=== PATIENT | male | born 1930 | race Caucasian/White ===

== ENCOUNTER 2016-07-17 17:22 | Inpatient (IN) | payer MEDICARE, MEDICAID ==
[2016-07-17 18:06] LABS: AUTOMATED BASOPHIL 0.9 % (0-2); AUTOMATED EOSINOPHIL 6.3 % (0-5); AUTOMATED LYMPH 12.4 % (17-44); AUTOMATED MONOCYTE 8.6 % (3-10); AUTOMATED NEUTROPHIL 71.8 % (45-76); MPV 9.1 fL (7.4-10.4)
[2016-07-17 18:17] LABS: BLOOD UREA NITROGEN 17 MG/DL (9-20); CALCIUM 8.8 MG/DL (8.4-10.2); CALCULATED OSMOLALITY 269 MOs/Kg (270-290); CHLORIDE 101 mEq/L (98-107); GLUCOSE 122 MG/DL (70-99); SODIUM LEVEL 138 mEq/L (137-146)
[2016-07-17 18:23] LABS: PT-INR 1.2
--- NOTE | 2016-07-17 18:24 | DIRPT ---
CLINICAL DATA: Acute onset of cough, shortness of breath and congestion. Initial encounter. EXAM: PORTABLE CHEST 1 VIEW COMPARISON: Chest radiograph performed 03/10/2016 FINDINGS: The lungs are well-aerated. Vascular congestion is noted. Bibasilar airspace opacities may reflect pulmonary edema or multifocal pneumonia. There is no evidence of significant pleural effusion or pneumothorax. The cardiomediastinal silhouette is borderline normal in size. A right-sided chest port is noted ending about the distal SVC. No acute osseous abnormalities are seen. IMPRESSION: Vascular congestion noted. Bibasilar airspace opacities may reflect pulmonary edema or multifocal pneumonia. Electronically Signed By: Oziel Hooker M.D. On: 07/17/2016 18:21
--- NOTE | 2016-07-17 18:44 | EDPRACDOC ---
- General Information Chief Complaint: Dyspnea/Resp distress Stated Complaint: SENT FROM URGENT CARE FOR CHF WORKUP Time Seen by Provider: 07/17/16 17:44 Information Source: Patient Mode Of Arrival: Car Home Medications: Home Medications Pregabalin [Lyrica] 75 mg PO TID 07/24/15 Alprazolam [Xanax] 0.5 mg PO QHS PRN 09/13/15 Aspirin (Enteric Coated) [Halfprin] 81 mg PO .DAILY@1700 09/13/15 Omeprazole [Prilosec] 20 mg PO DAILY 10/22/15 Oxycodone HCl [Roxicodone] 5 mg PO DAILY PRN 10/22/15 Rivastigmine Tartrate [Exelon 13.3 mg Patch] 13.3 mg TOP DAILY 03/11/16 Atorvastatin Calcium [Lipitor] 20 mg PO DAILY #30 tablet 03/15/16 Nitroglycerin Sublingual Tab [NTG (NitroStat Sublingual Tab)] 0.4 mg SL Q5MX3 PRN #30 tablet 03/15/16 Apixaban [Eliquis] 5 mg PO BID 07/17/16 Doxycycline Hyclate 100 mg PO .BID X 10D 07/17/16 Fluticasone Propionate [Flonase] 1 - 2 spray SHREYA DAILY 07/17/16 Furosemide [Lasix] 40 mg PO DAILY 07/17/16 Isosorbide Mononitrate [Isosorbide Mononitrate ER] 30 mg PO BID 07/17/16 Lisinopril [Prinivil] 5 mg PO DAILY 07/17/16 Ranolazine [Ranexa] 1,000 mg PO BID 07/17/16 Allergies/Adverse Reactions: Allergies Allergy/AdvReac Type Severity Reaction Status Date / Time No Known Drug Allergies Allergy Unknown Verified 07/17/16 17:25 - History of Present Illness Onset: FEW DAYS HPI: PT HAS HAD SOB AND COUGH FOR ABOUT 2 DAYS. THE PT SAID THAT HE WENT TO URGENT CARE AND THEY SENT HIM HERE. Shortness of Breath: Moderate Relevant History: Reports: Heart Failure (CHF) Rhinorrhea: Reports: None Ear Symptoms: Reports: None SOB Worsens with: Reports: Exertion SOB Improves with: Reports: Nothing ED Past Medical History - Patient Medical History Neurological History: Reports: Dementia Cardiac History: Reports: Atrial Fibrillation, Hypertension, Congestive Heart Failure, Valvular Heart Disease (AORTIC STENOSIS) Respiratory History: Reports: Pulmonary Embolism GI/ History: Reports: BPH Psychological History: Reports: Anxiety. Denies: Depression, Bipolar Disorder, Substance Use Disorder Systemic History: Reports: Cancer (non hodgkins lymphoma) Surgical History: Reports: Other (Port placement. Prostate surgery for BPH.) Date of Last Chemotherapy Date: 01/2015 - Family Medical History Reports: Cancer (Brother, Father: esophageal cancer; nephew also of cancer. ). Denies: Hypertension, Diabetes, Stroke, Cardiac Disorders, Respiratory Disorders - Social Medical History Smoking Status: Never smoker Social History: Denies: Substance Use Disorder ETOH: None Substance Abuse: None Lives In: Home EDM Review of Systems - Review of Systems ROS Negative Except as Marked: Yes All systems reviewed and were negative except as marked Respiratory: Shortness of Breath Cardiovascular: Chest Pain - Physical Exam Constitutional: Alert (Awake), Distress Oriented to: Time, Person, Place Last recorded Vital Signs: Last Vital Signs Temp 98.6 F 07/17/16 17:25 Pulse 99 07/17/16 17:30 Resp 20 07/17/16 18:01 BP 133/79 07/17/16 17:30 Pulse Ox 96 07/17/16 17:30 Oxygen Pulse Oxygen Saturation 96 O2 Device Room Air Oxygen Flow Rate Fraction of Inspired Oxygen ( FIO2) - HEENT Head: Normal ( normocephalic) Eye Exam: Normal (PERRL, EOMI, Sclera white) Oropharynx: Normal (Pharynx:Moist without exudate,Gums-no swelling) ENT EAC: Normal TMJ: Normal Nose: No Symptoms Reported (septum midline) Neck: Normal (FROM, trachea at midline) - Respiratory/Cardiovascular Respiratory: Rhonchi Cardiovascular: Tachycardia, Irregular - GI Auscultation: Normal (NABS) Palpation: Normal (Soft,No rebound or guarding, non distended) Tenderness: Non tender Estes's Sign: Negative - Musculoskeletal Back: Normal (Non-Tender) Extremities: Normal (Normal tone, Pulses 2+ No cyanosis or edema, FROM) - Integumentary Skin: Normal, Warm, Dry Lymphatics: Normal (no adenopathy) - Neurologic Memory Impaired: Normal Motor Function: Normal (Normal tone, Pulses 2+ No cyanosis or edema, FROM) Cranial Nerve: Normal (CN II-X11 intact sensation, strength 5/5) Cerebellar: Normal Mood Description: Normal Thought: Coherent Perception: Normal ED SOB MDM - Results Result Diagrams: 07/17/16 17:45 07/17/16 17:45 Results: WBC 4.8 xk/uL (3.8-10.8) 07/17/16 17:45 RBC 4.27 xM/uL (4.70-6.10) L 07/17/16 17:45 Hgb 14.0 g/dL (14.0-18.0) 07/17/16 17:45 Hct 40.3 % (42-52) L 07/17/16 17:45 MCV 94 fL (80-94) 07/17/16 17:45 MCH 32.9 pg (27-32) H 07/17/16 17:45 MCHC 34.8 g/dl (33-36) 07/17/16 17:45 RDW 14.4 % (11.5-14.5) 07/17/16 17:45 Plt Count 104 xk/uL (130-400) L 07/17/16 17:45 MPV 9.1 fL (7.4-10.4) 07/17/16 17:45 Neut % (Auto) 71.8 % (45-76) 07/17/16 17:45 Lymph % (Auto) 12.4 % (17-44) L 07/17/16 17:45 [place] % (Auto) 8.6 % (3-10) 07/17/16 17:45 Eos % (Auto) 6.3 % (0-5) H 07/17/16 17:45 Baso % (Auto) 0.9 % (0-2) 07/17/16 17:45 Absolute Neuts (auto) 3.41 xk/uL (1.7-8.2) 07/17/16 17:45 Absolute Lymphs (auto) 0.58 xk/uL (0.65-4.75) L 07/17/16 17:45 PT 12.3 SEC (9.2-11.2) H 07/17/16 17:45 INR 1.2 07/17/16 17:45 APTT 32.0 SEC (22-35) 07/17/16 17:45 Sodium 138 mEq/L (137-146) 07/17/16 17:45 Potassium 3.6 mEq/L (3.5-5.1) 07/17/16 17:45 Chloride 101 mEq/L (98-107) 07/17/16 17:45 Carbon Dioxide 24 mMOL/L (22-33) 07/17/16 17:45 Anion Gap 17 mEq/L (8-16) H 07/17/16 17:45 BUN 17 MG/DL (9-20) 07/17/16 17:45 Creatinine 0.80 MG/DL (0.66-1.25) 07/17/16 17:45 Estimated GFR (MDRD) > 60 mL/min (>=60) 07/17/16 17:45 Glucose 122 MG/DL (70-99) H 07/17/16 17:45 Calculated Osmolality 269 MOs/Kg (270-290) L 07/17/16 17:45 Calcium 8.8 MG/DL (8.4-10.2) 07/17/16 17:45 Corrected Calcium 9.0 MG/DL (8.4-10.2) 07/17/16 17:45 Total Bilirubin 1.2 MG/DL (0.2-1.3) 07/17/16 17:45 AST 31 IU/L (17-59) 07/17/16 17:45 ALT 22 IU/L (21-72) 07/17/16 17:45 Alkaline Phosphatase 93 IU/L (50-160) 07/17/16 17:45 Troponin I 0.02 ng/mL (<.04) 07/17/16 17:45 Mdz-K-Jxvffsmipfa Pept 4130 pg/mL (0-1800) H 07/17/16 17:45 Total Protein 7.0 G/DL (6.3-8.2) 07/17/16 17:45 Albumin 3.8 G/DL (3.5-5.0) 07/17/16 17:45 Lab Results 07/17/16 07/17/16 07/17/16 17:45 17:45 17:45 WBC 4.8 RBC 4.27 L Hgb 14.0 Hct 40.3 L MCV 94 MCH 32.9 H MCHC 34.8 RDW 14.4 Plt Count 104 L MPV 9.1 Neut % (Auto) 71.8 Lymph % (Auto) 12.4 L [place] % (Auto) 8.6 Eos % (Auto) 6.3 H Baso % (Auto) 0.9 Absolute Neuts (auto) 3.41 Absolute Lymphs (auto) 0.58 L PT 12.3 H INR 1.2 APTT 32.0 Sodium 138 Potassium 3.6 Chloride 101 Carbon Dioxide 24 Anion Gap 17 H BUN 17 Creatinine 0.80 Estimated GFR (MDRD) > 60 Glucose 122 H Calculated Osmolality 269 L Calcium 8.8 Corrected Calcium 9.0 Total Bilirubin 1.2 AST 31 ALT 22 Alkaline Phosphatase 93 Troponin I 0.02 Oub-Y-Lwndoayqnds Pept 4130 H Total Protein 7.0 Albumin 3.8 - EKG EKG #1 EKG Time: 17:29 -: Yes EKG interpreted by me Rate: bpm: 98 [place]: Normal Rhythm: Afib Block: None Hypertrophy: None ST: Normal Comparison: 03/10/16 - Diagnostic Imaging Chest Image interpreted by: Radiologist Diagnostic Imaging Comments: Vascular congestion noted. Bibasilar airspace opacities may reflect pulmonary edema or multifocal pneumonia. - Departure Yes I personally saw and evaluated the patient. Disposition: Admit IP To This Hospital Condition: Fair Final Diagnosis: Acute exacerbation of CHF (congestive heart failure), Chest pain, Atrial fibrillation Instructions: *Heart Failure (Activity, Diet, Worsening Symptoms, Weight Monitoring)(ED), Chest Pain (ED), Chest Wall Pain, Atrial Fibrillation (ED) Education/Counseling Given To: Patient Education/Counseling Given Regarding: Diagnosis, Treatment Decision to Admit Time: 18:46 Decision to admit date: 07/17/16 Decision to admit: from ED - Physician Consulted Hospitalist Provider Called: Attila Larson
[2016-07-17] MEDS ORDERED: FUROSEMIDE 40 MG/4 ML VIAL IV ONE (18:58)
[2016-07-17] MEDS ORDERED: NITROGLYCERINE 2 % OINTMENT PACK TOP ONE (18:58)
--- NOTE | 2016-07-17 19:25 | HISTPHYS ---
- Chief Complaint chest pain and shortness of breath - History of Present Illness PRIMARY CARE PROVIDER: Dr. Sofia HPI: The patient is an 86 yo man who went to the urgent care 2 days ago, then again today and was told he should come in to the emergency department due to fluid on his lungs. He was coughing often and was short of breath. He had some mild chest pain on the left. Onset: 2 or more days. Duration: intermittent. Location: left chest. Radiation: none. Character: 2/10. Dull ache. No heaviness. Alleviated by: Nothing. Exacerbated by: exertion. Associated Symptoms: Coughing up green sputum. No wheezing now but had been before. Shortness of breath. Mild chest pain and had sense of irregular heartbeat/palpitations. No fever or chills. No diaphoresis. Treatments: none at home except usual medications. - Medical History Cardiac History: Reports: Atrial Fibrillation, Hypertension, Congestive Heart Failure (SYSTOLIC. ECHO 03/2016: EF30-35%. 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 Denies: Depression, Bipolar Disorder, Substance Use Disorder ECHOCARDIOGRAM 03/11/2016: EF 30-35% FINDINGS ------- Procedure:2D images, m-mode, color and spectral Doppler were obtained and reviewed. ECG rhythm:Atrial fibrillation. Study quality:This was a technically adequate study. Previous study 07/2015. Left Ventricle:The left ventricle is moderately dilated. Left ventricular wall thickness is normal. There is severe global hypokinesis of LV . Overall left ventricular systolic function is moderate-severely impaired with, an EF between 30 - 35 %. Right Ventricle:The right ventricle is normal in size and function. Left Atrium:Left atrium is severely dilated by volume. Right Atrium:The right atrium is mildly enlarged. Aortic Valve:Aortic valve is trileaflet and is severely thickened. There is no evidence of aortic regurgitation. Moderate to severe aortic stenosis with peak/mean pressure gradient of AV 45 maxPG / AV 31 meanPG , the aortic valve area byplanimetry 1.1 cm 2. The aortic valve area by continuity equation is 1.0 cm2 Mitral Valve:Normal appearing mitral valve. There is trace to mild mitral regurgitation. Tricuspid Valve:The tricuspid valve appears structurally normal. Mild tricuspid regurgitation present. The right ventricular systolic pressure, as measured by Doppler, is 59 mmHg. Pulmonic Valve:The pulmonic valve is normal. Trace/mild (physiologic) pulmonic regurgitation. Aorta:The aortic root, ascending aorta and aortic arch not well visualized. IVC:The inferior vena cava is dilated with no significant inspiratory collapse which is consistent estimated right atrial pressure of >20 mmHg. Pericardium:The pericardium is normal. There is a trivial pericardial effusion present. CONCLUSIONS 1. Atrial fibrillation. 2. The left ventricle is moderately dilated. 3. There is severe global hypokinesis of LV. 4. Overall left ventricular systolic function is moderate-severely impaired with , an EF between 30 - 35 %. 5. Left atrium is severely dilated by volume. 6. The right atrium is mildly enlarged. 7. Moderate to severe aortic stenosis with peak/mean pressure gradient of AV 45 maxPG / AV 31 meanPG , the aortic valve area byplanimetry 1.1 cm 2. - Surgical History Reports: Other (Port placement. Prostate surgery for BPH.) - Medictions/Allergies Allergies No Known Drug Allergies Allergy (Verified 07/17/16 17:25) Unknown Current Medication List: Reviewed Home Medications Pregabalin [Lyrica] 75 mg PO TID 07/24/15 Alprazolam [Xanax] 0.5 mg PO QHS PRN 09/13/15 Aspirin (Enteric Coated) [Halfprin] 81 mg PO .DAILY@1700 09/13/15 Omeprazole [Prilosec] 20 mg PO DAILY 10/22/15 Oxycodone HCl [Roxicodone] 5 mg PO DAILY PRN 10/22/15 Rivastigmine Tartrate [Exelon 13.3 mg Patch] 13.3 mg TOP DAILY 03/11/16 Atorvastatin Calcium [Lipitor] 20 mg PO DAILY #30 tablet 03/15/16 Nitroglycerin Sublingual Tab [NTG (NitroStat Sublingual Tab)] 0.4 mg SL Q5MX3 PRN #30 tablet 03/15/16 Apixaban [Eliquis] 5 mg PO BID 07/17/16 Doxycycline Hyclate 100 mg PO .BID X 10D 07/17/16 Fluticasone Propionate [Flonase] 1 - 2 spray SHREYA DAILY 07/17/16 Furosemide [Lasix] 40 mg PO DAILY 07/17/16 Isosorbide Mononitrate [Isosorbide Mononitrate ER] 30 mg PO BID 07/17/16 Lisinopril [Prinivil] 5 mg PO DAILY 07/17/16 Ranolazine [Ranexa] 1,000 mg PO BID 07/17/16 - Family History Reports: Cancer (Brother, Father: esophageal cancer; nephew also of cancer. ), Cardiac Disorders (Mother), Other. Denies: Hypertension, Diabetes, Stroke, Respiratory Disorders - Social History Smoking Status: Never smoker Social History: Denies: Alcohol Use, Substance Use Disorder - Review of Systems GENERAL: No Fever, chills, or diaphoresis. Positive for fatigue/malaise. HEENT: No ear pain or discharge. No nasal discharge or bleeding. No throat pain or swelling. No eye pain or eye redness. RESPIRATORY: Coughing up green sputum. No wheezing now but had been before. Shortness of breath. CARDIOVASCULAR: Mild chest pain and had sense of irregular heartbeat/ palpitations. GI: No abdominal pain, nausea, vomiting, diarrhea, constipation, or bloody stool. NEUROLOGICAL: No headache or focal weakness. INTEGUMENT: no rashes, itching, or lesions. LYMPHATIC SYSTEM: no lymph node swelling or pain. MUSCULOSKELETAL: no pain or joint swelling. GENITOURINARY: No dysuria or hematuria. ENDOCRINE: No polyuria or polydipsia. HEME: No chronic anemia, bleeding, or easy bruising. - Physical Exam Vital Signs: Initial Vitals Temperature 98.6 F 07/17/16 17:25 Pulse Rate 115 07/17/16 17:25 Respiratory Rate 22 07/17/16 17:25 Blood Pressure 138/92 07/17/16 17:25 Pulse Oxygen Saturation 95 07/17/16 17:25 Vital Signs - 24 hr 07/17/16 07/17/16 07/17/16 17:25 17:30 18:01 Temperature 98.6 F Pulse Rate 115 99 Respiratory 22 20 20 Rate Blood Pressure 138/92 133/79 Pulse Oxygen 95 96 Saturation 07/17/16 19:17 Temperature Pulse Rate 73 Respiratory 18 Rate Blood Pressure 107/57 L Pulse Oxygen 92 Saturation Weight: 92.5 kg Height: 5 feet 9 inches BMI: 30.1 - Other Exam Other Exam Findings: GENERAL: Ill-appearing, well nourished, in acute distress. HEENT: Normocephalic, atraumatic; pupils equal and round. Nares patent, without discharge or bleeding. No oropharyngeal lesions or erythema. Mucous membranes are dry. NECK: is supple, no masses, trachea midline. RESPIRATORY: Clear to auscultation bilaterally. Chest wall movements are symmetric. No use of accessory muscles to breathe. Decreased breath sounds in bases bilaterally. Bilateral rales. Rhonchi on left. CARDIOVASCULAR: Normal S1, S2. Murmur 3/6 systolic. No rubs, or gallops. PMI non -displaced. Carotids: no carotid bruits. No bradycardia or tachycardia. DP pulses 2+ bilaterally. GI: soft, nontender, non-distended, normal active bowel sounds. No hepatosplenomegaly. INTEGUMENT: Clean, dry, and intact. No rashes. MUSCULOSKELETAL: Moving all extremities. No cyanosis. No clubbing. Edema: trace lower extremity edema bilaterally. NEUROLOGICAL: Cranial nerves 2-12 grossly intact. Motor 4-/5 throughout. Reflexes: 2+ bilaterally. Babinski: toes downgoing bilaterally. Intact Finger to nose. Sensory grossly intact to light touch. Intact rapid alternating movements bilaterally. No pronator drift. PSYCHIATRIC: Oriented to person and place. Normal and appropriate affect. LYMPHATIC: No cervical lymphadenopathy. No supraclavicular lymphadenopathy. - Lab Results Laboratory Results - last 24 hr 07/17/16 07/17/16 07/17/16 17:45 17:45 17:45 WBC 4.8 RBC 4.27 L Hgb 14.0 Hct 40.3 L MCV 94 MCH 32.9 H MCHC 34.8 RDW 14.4 Plt Count 104 L MPV 9.1 Neut % (Auto) 71.8 Lymph % (Auto) 12.[address] [place] % (Auto) 8.6 Eos % (Auto) 6.3 H Baso % (Auto) 0.9 Absolute Neuts (auto) 3.41 Absolute Lymphs (auto) 0.58 L PT 12.3 H INR 1.2 APTT 32.0 Sodium 138 Potassium 3.6 Chloride 101 Carbon Dioxide 24 Anion Gap 17 H BUN 17 Creatinine 0.80 Estimated GFR (MDRD) > 60 Glucose 122 H Calculated Osmolality 269 L Calcium 8.8 Corrected Calcium 9.0 Total Bilirubin 1.2 AST 31 ALT 22 Alkaline Phosphatase 93 Troponin I 0.02 Jbm-U-Dzuvlygyqbo Pept 4130 H Total Protein 7.0 Albumin 3.8 - Diagnostic Findings EK bpm. Atrial fibrillation. QTc 518. Reviewed EKG personally. Chest x-ray, viewed personally: CLINICAL DATA: Acute onset of cough, shortness of breath and congestion. Initial encounter. EXAM: PORTABLE CHEST 1 VIEW COMPARISON: Chest radiograph performed 03/10/2016 FINDINGS: The lungs are well-aerated. Vascular congestion is noted. Bibasilar airspace opacities may reflect pulmonary edema or multifocal pneumonia. There is no evidence of significant pleural effusion or pneumothorax. The cardiomediastinal silhouette is borderline normal in size. A right-sided chest port is noted ending about the distal SVC. No acute osseous abnormalities are seen. IMPRESSION: Vascular congestion noted. Bibasilar airspace opacities may reflect pulmonary edema or multifocal pneumonia. - Assessment (1) Acute on chronic systolic congestive heart failure I50.23 - ACUTE ON CHRONIC SYSTOLIC (CONGESTIVE) HEART FAILURE Acute Present on Admission: Yes The patient has both acute and chronic heart failure. Heart failure type: systolic Echocardiogram 03/2016 shows EF 30-35% and moderate to severe . Plan: Diet of 2 g Na. Daily weights with strict I/O's. Beta blockers held due to bradycardia. Provide support with oxygen by nasal cannula as needed. Provide teaching regarding heart failure, 2g Na diet, daily weights, signs of acute heart failure. (2) Bacterial pneumonia J15.9 - UNSPECIFIED BACTERIAL PNEUMONIA Acute Present on Admission: Yes Pneumonia. Severe. Requiring continuous oxygen support. Failed outpatient management with PO doxycycline. Type: Community acquired pneumonia. Criteria for diagnosis: Chest x-ray suggestive of pneumonia, rhonchi on physical exam. Likely bacterial. Plan: Sputum culture has been ordered. Treat with IV ceftriaxone and IV azithromycin. Monitor oxygen saturation levels. (3) Atrial fibrillation I48.91 - UNSPECIFIED ATRIAL FIBRILLATION Acute Present on Admission: Yes Plan: Continue anticoagulation with Eliquis. Telemetry. (4) Dyspnea R06.00 - DYSPNEA, UNSPECIFIED Acute Present on Admission: Yes PRN O2 by [place] Case Care Discussed with: Patient, Nursing Staff Total Time: 60 min
[2016-07-17] MEDS ORDERED: FUROSEMIDE 20 MG/2 ML VIAL ONE (19:29)
[2016-07-17] MEDS ORDERED: CEFTRIAXONE 1 GM in D5W 100 ML IV ONE (19:31)
[2016-07-17] MEDS ORDERED: ALPRAZOLAM 0.5 MG TAB PO PRN (22:34)
[2016-07-17] MEDS ORDERED: NITROGLYCERINE 0.4 MG TAB SL PRN (22:34)
[2016-07-17] MEDS ORDERED: OXYCODONE HCL 5 MG TABLET PO PRN (22:34)
[2016-07-17] MEDS ORDERED: MORPHINE 2 MG/ML INJECTION IV PRN (22:36)
[2016-07-17] MEDS ORDERED: Non-Formulary Medication ITEM (Pregabalin [Lyrica] 75 MG) PO SCH (22:45)
[2016-07-17] MEDS ORDERED: PREGABALIN 25 MG CAP PO ONE (23:00)
[2016-07-17] MEDS ORDERED: Vaccine Screening Complete SCH (23:00)
[2016-07-17] MEDS ORDERED: FLUTICASONE PROPIONATE 16 GM BOT NAS SCH (23:00)
[2016-07-17] MEDS ORDERED: Pharmacy Order Set Alert SCH (23:00)
[2016-07-17] MEDS: AZITHROMYCIN 500 MG in D5W 250 ML IV SCH (23:18)
[2016-07-17 23:34] LABS: LEUKOCYTES/URINE NEG (NEGATIVE); NITRITE/URINE NEG (NEGATIVE); RBC/URINE 0-2 (0-2); URINE OCCULT BLOOD NEG (NEG/TRACE); WBC/URINE 0-2 (0-2)
[2016-07-18] MEDS ORDERED: PROMETHAZINE 25 MG/ML VIAL IV PRN (00:24)
[2016-07-18] MEDS ORDERED: SENNA CONCENTRATE TAB PO PRN (00:24)
[2016-07-18] MEDS ORDERED: BENZONATATE 100 MG PERLES PO PRN (00:24)
[2016-07-18] MEDS ORDERED: ACETAMINOPHEN 325 MG/TAB TABLET PO PRN (00:24)
[2016-07-18] MEDS ORDERED: GUAIFEN 100 MG-DEXTROMETH 10 MG PER 5 ML PO PRN (00:24)
[2016-07-18] MEDS ORDERED: Aluminum;Magnesium;Simethicone 30 ML UDC PO PRN (00:24)
[2016-07-18] MEDS ORDERED: TEMAZEPAM 15 MG CAP PO PRN (00:24)
[2016-07-18] MEDS ORDERED: ACETAMINOPHEN 325 MG SUPP PR PRN (00:24)
[2016-07-18] MEDS ORDERED: ONDANSETRON HCL 4 MG/2 ML VIAL IV PRN (00:24)
[2016-07-18] MEDS ORDERED: BISACODYL 5 MG TAB PO PRN (00:24)
[2016-07-18] MEDS: CARVEDILOL 3.125 MG TAB PO SCH ×3 (00:37→21:27)
[2016-07-18] MEDS: APIXABAN 5 MG TABLET PO SCH ×3 (00:37→21:30)
[2016-07-18] MEDS: RANOLAZINE 500 MG EXT RELEASE TAB PO SCH ×3 (00:38→21:30)
[2016-07-18 04:41] LABS: MPV 9.7 fL (7.4-10.4)
[2016-07-18] MEDS: FUROSEMIDE 40 MG/4 ML VIAL IV SCH ×3 (04:45→19:55)
[2016-07-18 04:55] LABS: BLOOD UREA NITROGEN 17 MG/DL (9-20); CALCIUM 8.7 MG/DL (8.4-10.2); CALCULATED OSMOLALITY 270 MOs/Kg (270-290); CHLORIDE 98 mEq/L (98-107); GLUCOSE 91 MG/DL (70-99); SODIUM LEVEL 139 mEq/L (137-146)
[2016-07-18] MEDS: PREGABALIN 25 MG CAP PO SCH ×3 (05:40→21:29)
[2016-07-18] MEDS: PANTOPRAZOLE 40 MG TAB PO SCH (05:41)
[2016-07-18] MEDS: LISINOPRIL 5 MG TAB PO SCH (07:59)
[2016-07-18] MEDS: ISOSORBIDE MONONITRATE 30 MG TAB PO SCH ×2 (07:59→21:27)
[2016-07-18] MEDS: ATORVASTATIN 20 MG TAB PO SCH (08:00)
[2016-07-18] MEDS: RIVASTIGMINE 13.3 MG PATCH TOP SCH (08:00)
[2016-07-18] MEDS: FLUTICASONE PROPIONATE 16 GM BOT NAS SCH (08:00)
[2016-07-18] MEDS ORDERED: OMEPRAZOLE 20 MG PO SCH (09:00)
[2016-07-18] MEDS ORDERED: ALBUTEROL 0.083% 3 ML NEB NEB PRN (10:49)
--- NOTE | 2016-07-18 17:15 | GENMEDPROG ---
Subjective Note: Doing very well standing up working with physical therapy. He has been weaned to room air Notes Reviewed: Yes Events from last night noted and discussed with Clinical Staff Current Medication List: Reviewed Currently: Denies: MOUSTAPHA MON DVT Prophylaxis: Yes - Physical Examination Vital Signs and I&O: Last Vital Signs Temp 97.8 F 07/18/16 16:15 Pulse 71 07/18/16 17:07 Resp 20 07/18/16 16:15 BP 115/76 07/18/16 16:15 Pulse Ox 95 07/18/16 16:15 Oxygen Pulse Oxygen Saturation 95 O2 Device Room Air Oxygen Flow Rate 2 Fraction of Inspired Oxygen ( FIO2) Intake & Output 07/15/16 07/16/16 07/17/16 07/18/16 23:59 23:59 23:59 23:59 Intake Total 1 1092 Output Total 1600 2400 Balance -1599 -1305 Patient's weight 86.545 kg 86.183 kg Neck: Supple. negative: JVD Lymphatics: Normal (no adenopathy) Respiratory: Normal - CTA (Clear to auscultation bilaterally. No wheezing, rales , rhonchi. Chest wall movements are symmetric. No use of accessory muscles to breathe.) Cardiovascular: Regular rate and rhythm (No bradycardia or tachycardia), Normal S1, No Gallops,Rubs/Murmurs, Normal S2, Good Pedal Pulses (DP pulses 2+ bilaterally) GI: Normal bowel sounds (normal active sounds), Soft (non-distended), Non tender , No hepatospenomegaly, No masses Extremities/Musculoskeletal: Normal pulses (DP pulses 2+ bilaterally). negative : Edema Skin: Warm,Dry and Intact, No rashes, No significant lesion Lab/DI/Studies Reviewed: Abnormal Lab Results 07/17/16 07/17/16 07/17/16 17:45 17:45 17:45 RBC 4.27 L Hgb Hct 40.3 L MCV MCH 32.9 H Plt Count 104 L Lymph % (Auto) 12.4 L Eos % (Auto) 6.3 H Absolute Lymphs (auto) 0.58 L PT 12.3 H Potassium Anion Gap 17 H Glucose 122 H Calculated Osmolality 269 L Ocw-U-Lvtqnzejvww Pept 4130 H 07/18/16 07/18/16 02:55 02:55 RBC 4.15 L Hgb 13.6 L Hct 39.4 L MCV 95 H MCH 32.8 H Plt Count 97 L Lymph % (Auto) Eos % (Auto) Absolute Lymphs (auto) PT Potassium 3.3 L Anion Gap Glucose Calculated Osmolality Mfe-B-Ulpdmfzsjlg Pept - Assessment (1) Acute on chronic systolic congestive heart failure Acute I50.23 - ACUTE ON CHRONIC SYSTOLIC (CONGESTIVE) HEART FAILURE Comment/ Plan: The patient has both acute and chronic heart failure. Heart failure type: systolic Echocardiogram 03/2016 shows EF 30-35% and moderate to severe . Plan: Diet of 2 g Na. Daily weights with strict I/O's. Beta blockers held due to bradycardia. Provide support with oxygen by nasal cannula as needed. Provide teaching regarding heart failure, 2g Na diet, daily weights, signs of acute heart failure. Continue present plan check ambulating O2 room air sats in a.m.. (2) Bacterial pneumonia Acute J15.9 - UNSPECIFIED BACTERIAL PNEUMONIA Comment/Plan: Continue IV antibiotics. Patient has weaned to room air. Check a.m. ambulating O2 sats. (3) Atrial fibrillation Acute I48.91 - UNSPECIFIED ATRIAL FIBRILLATION Qualifiers: Atrial fibrillation type: chronic Qualified Code(s): I48.2 - Chronic atrial fibrillation Comment/Plan: Plan: Continue anticoagulation with Eliquis. Telemetry. (4) Dyspnea Acute R06.00 - DYSPNEA, UNSPECIFIED Comment/Plan: PRN O2 by [place] - Plan Continue present plan diurese as above. Total Time: 45 min Critical Care: No Couseling Time (>50% in counseling/coordination): No
[2016-07-18] MEDS ORDERED: CEFTRIAXONE 1 GM in D5W 100 ML IV SCH (20:00)
[2016-07-18] MEDS: GUAIFENESIN-DEXTROMETHORPHAN LA TAB PO SCH (21:30)
[2016-07-18] MEDS: AZITHROMYCIN 500 MG in D5W 250 ML IV SCH (23:05)
[2016-07-19 03:15] VITALS: BMI 27.9
[2016-07-19 04:48] LABS: AUTOMATED EOSINOPHIL 5.1 % (0-5)
[2016-07-19 04:50] LABS: AUTOMATED BASOPHIL 0.5 % (0-2); AUTOMATED LYMPH 16.1 % (17-44); AUTOMATED MONOCYTE 11.8 % (3-10); AUTOMATED NEUTROPHIL 66.5 % (45-76); MPV 9.5 fL (7.4-10.4)
[2016-07-19] MEDS: FUROSEMIDE 40 MG/4 ML VIAL IV SCH ×2 (04:55→13:11)
[2016-07-19 04:58] LABS: BLOOD UREA NITROGEN 16 MG/DL (9-20); CALCULATED OSMOLALITY 266 MOs/Kg (270-290); CHLORIDE 96 mEq/L (98-107); GLUCOSE 109 MG/DL (70-99); SODIUM LEVEL 137 mEq/L (137-146)
[2016-07-19] MEDS: PREGABALIN 25 MG CAP PO SCH (05:11)
[2016-07-19] MEDS: PANTOPRAZOLE 40 MG TAB PO SCH (05:11)
[2016-07-19] MEDS ORDERED: POTASSIUM CHLORIDE 20 MEQ TAB PO SCH (08:00)
[2016-07-19] MEDS ORDERED: FUROSEMIDE 40 MG TAB PO SCH (09:00)
[2016-07-19] MEDS: ISOSORBIDE MONONITRATE 30 MG TAB PO SCH (10:10)
[2016-07-19] MEDS: CARVEDILOL 3.125 MG TAB PO SCH (10:10)
[2016-07-19] MEDS: LISINOPRIL 5 MG TAB PO SCH (10:10)
[2016-07-19] MEDS: MAGNESIUM OXIDE 400 MG TAB PO SCH ×2 (10:11→13:11)
[2016-07-19] MEDS: RIVASTIGMINE 13.3 MG PATCH TOP SCH (10:12)
[2016-07-19] MEDS: APIXABAN 5 MG TABLET PO SCH (10:12)
[2016-07-19] MEDS: FLUTICASONE PROPIONATE 16 GM BOT NAS SCH (10:13)
[2016-07-19] MEDS: ATORVASTATIN 20 MG TAB PO SCH (10:13)
[2016-07-19] MEDS: GUAIFENESIN-DEXTROMETHORPHAN LA TAB PO SCH (10:14)
[2016-07-19] MEDS: RANOLAZINE 500 MG EXT RELEASE TAB PO SCH (10:14)
[2016-07-19 11:39] VITALS: TEMP 97.5
[2016-07-19 11:41] VITALS: BP 119/62
--- NOTE | 2016-07-19 13:33 | PCM.DCS92 ---
- Final/Secondary Discharge Diagnosis (1) Acute on chronic systolic congestive heart failure Acute I50.23 - ACUTE ON CHRONIC SYSTOLIC (CONGESTIVE) HEART FAILURE Present on Admission: Yes Comment: The patient has both acute and chronic heart failure. Heart failure type: systolic Echocardiogram 03/2016 shows EF 30-35% and moderate to severe . Plan: Diet of 2 g Na. Daily weights with strict I/O's. Beta blockers held due to bradycardia. Provide support with oxygen by nasal cannula as needed. Provide teaching regarding heart failure, 2g Na diet, daily weights, signs of acute heart failure. Continue present plan check ambulating O2 room air sats in a.m.. (2) Bacterial pneumonia Acute J15.9 - UNSPECIFIED BACTERIAL PNEUMONIA Present on Admission: Yes Comment: Continue IV antibiotics. Patient has weaned to room air. Check a.m. ambulating O2 sats. (3) Atrial fibrillation Acute I48.91 - UNSPECIFIED ATRIAL FIBRILLATION Present on Admission: Yes chronic I48.2 - Chronic atrial fibrillation Comment: Plan: Continue anticoagulation with Eliquis. Telemetry. (4) Dyspnea Acute R06.00 - DYSPNEA, UNSPECIFIED Present on Admission: Yes Comment: PRN O2 by NC Discharge Disposition: Home Discharge Condition: Fair Cognitive Discharge Status: Unimpaired Fuctional Discharge Status: Independent Physician Follow up/Referrals: Jose Sofia MD [Primary Care Provider] - One Week New Prescriptions: Carvedilol [Coreg] 3.125 mg PO BID #60 tablet Fluticasone Propionate [Flonase] 1 sprays SHREYA DAILY #1 bottle POTASSIUM CHLORIDE Tablet [K-DUR 20 mEq Tablet*] 20 meq PO BIDWM #30 tab.er.prt Pregabalin [Lyrica] 75 mg PO TID #90 capsule Magnesium Oxide [Mag-Ox] 400 mg PO TIDWM #90 tablet Guaifenesin-Dextromethorphan [Mucinex Dm] 2 tab PO BID #20 tablet.er Oxycodone HCl [Roxicodone] 5 mg PO DAILY PRN #10 tablet PRN Reason: Pain Benzonatate [Tessalon] 100 mg PO TID PRN #30 capsule PRN Reason: Cough - First Option Alprazolam [Xanax] 0.5 mg PO QHS PRN #10 tablet PRN Reason: Sleep Or Insomnia Discharge Home Medication List Aspirin (Enteric Coated) [Halfprin] 81 mg PO .DAILY@1400 09/13/15 [History Confirmed 07/18/16] Omeprazole [Prilosec] 20 mg PO DAILY 10/22/15 [History Confirmed 07/17/16] Rivastigmine Tartrate [Exelon 13.3 mg Patch] 13.3 mg TOP DAILY 03/11/16 [ History Confirmed 07/17/16] Atorvastatin Calcium [Lipitor] 20 mg PO DAILY #30 tablet 03/15/16 [Rx Confirmed 07/17/16] Nitroglycerin Sublingual Tab [NTG (NitroStat Sublingual Tab)] 0.4 mg SL [id number] PRN #30 tablet 03/15/16 [Rx Confirmed 07/17/16] Apixaban [Eliquis] 5 mg PO BID 07/17/16 [History Confirmed 07/17/16] Furosemide [Lasix] 40 mg PO DAILY 07/17/16 [History Confirmed 07/17/16] Isosorbide Mononitrate [Isosorbide Mononitrate ER] 30 mg PO BID 07/17/16 [ History Confirmed 07/17/16] Lisinopril [Prinivil] 5 mg PO DAILY 07/17/16 [History Confirmed 07/17/16] Ranolazine [Ranexa] 1,000 mg PO BID 07/17/16 [History Confirmed 07/17/16] Alprazolam [Xanax] 0.5 mg PO QHS PRN #10 tablet 07/19/16 [Rx] Benzonatate [Tessalon] 100 mg PO TID PRN #30 capsule 07/19/16 [Rx] Carvedilol [Coreg] 3.125 mg PO BID #60 tablet 07/19/16 [Rx] Fluticasone Propionate [Flonase] 1 sprays SHREYA DAILY #1 bottle 07/19/16 [Rx] Guaifenesin-Dextromethorphan [Mucinex Dm] 2 tab PO BID #20 tablet.er 07/19/16 [ Rx] Magnesium Oxide [Mag-Ox] 400 mg PO TIDWM #90 tablet 07/19/16 [Rx] Oxycodone HCl [Roxicodone] 5 mg PO DAILY PRN #10 tablet 07/19/16 [Rx] POTASSIUM CHLORIDE Tablet [K-DUR 20 mEq Tablet*] 20 meq PO BIDWM #30 tab.er.prt 07/19/16 [Rx] Pregabalin [Lyrica] 75 mg PO TID #90 capsule 07/19/16 [Rx] New Discharge Medications (Rx) Alprazolam [Xanax] 0.5 mg PO QHS PRN #10 tablet 07/19/16 [Rx] Benzonatate [Tessalon] 100 mg PO TID PRN #30 capsule 07/19/16 [Rx] Carvedilol [Coreg] 3.125 mg PO BID #60 tablet 07/19/16 [Rx] Fluticasone Propionate [Flonase] 1 sprays SHREYA DAILY #1 bottle 07/19/16 [Rx] Guaifenesin-Dextromethorphan [Mucinex Dm] 2 tab PO BID #20 tablet.er 07/19/16 [ Rx] Magnesium Oxide [Mag-Ox] 400 mg PO TIDWM #90 tablet 07/19/16 [Rx] Oxycodone HCl [Roxicodone] 5 mg PO DAILY PRN #10 tablet 07/19/16 [Rx] POTASSIUM CHLORIDE Tablet [K-DUR 20 mEq Tablet*] 20 meq PO BIDWM #30 tab.er.prt 07/19/16 [Rx] Pregabalin [Lyrica] 75 mg PO TID #90 capsule 07/19/16 [Rx] O2 Device: Room Air Diet at Discharge: As Tolerated, Cardiac, Heart Healthy, Low Salt Activity: No Restrictions, No Heavy Lifting Call Office For: Worsening Symptoms, Fever over 100.5, Pain Uncontrolled By Meds - DC Summary Notes Hospital Course Note:: Discharge summary on patient named JOSE RAUL DAHL admitted to [facility] on 07/17/16 by Attila Larson MD. Date of discharge is []. 86-year-old gentleman admitted to our facility with acute on chronic systolic congestive heart failure decompensated, bacterial pneumonia, atrial fibrillation and dyspnea. He was treated for the above conditions and did quite well. Today he has reached maximum benefit of hospitalization. He is stable for discharge home on oral Lasix oral antibiotics and oral rate control medicines. He is on appropriate 5 drug therapy for congestive heart failure. Total Time: 55 min - Physical Exam Vital Signs: Last Vital Signs Temp 97.5 F 07/19/16 11:39 Pulse 67 01/17/17 12:00 Resp 20 07/19/16 11:39 BP 119/62 07/19/16 11:39 Pulse Ox 93 07/19/16 11:39 Oxygen Pulse Oxygen Saturation 93 O2 Device Room Air Oxygen Flow Rate 2 Fraction of Inspired Oxygen ( FIO2) Constitutional: Alert (Awake), Distress Oriented to: Time, Person, Place - HEENT Head: Normal ( normocephalic) Eye: Normal (PERRL, EOMI, Sclera white) Oropharynx: Normal (Pharynx:Moist without exudate,Gums-no swelling) ENT EAC: Normal TMJ: Normal Nose: No Symptoms Reported (septum midline) - Respiratory/Cardiovascular Respiratory: Normal - CTA (Clear to auscultation bilaterally. No wheezing, rales , rhonchi. Chest wall movements are symmetric. No use of accessory muscles to breathe.) - GI Auscultation: Normal (NABS) Palpation: Normal (Soft,No rebound or guarding, non distended) Tenderness: Non tender Estes's Sign: Negative - Musculoskeletal Back: Normal (Non-Tender) Extremities: Normal (Normal tone, Pulses 2+ No cyanosis or edema, FROM) - Integumentary Lymphatics: Normal (no adenopathy) - Neurologic Memory Impaired: Normal Cerebellar: Normal Mood Description: Normal Thought: Coherent Perception: Normal - Other Exam Other Exam Findings: Laboratory Results - last 24 hr 07/19/16 07/19/16 04:10 04:10 WBC 5.3 RBC 4.47 L Hgb 14.5 Hct 42.0 MCV 94 MCH 32.5 H MCHC 34.6 RDW 14.4 Plt Count 100 L MPV 9.5 Neut % (Auto) 66.5 Lymph % (Auto) 16.1 L Tyler % (Auto) 11.8 H Eos % (Auto) 5.1 H Baso % (Auto) 0.5 Absolute Neuts (auto) 3.50 Absolute Lymphs (auto) 0.85 Sodium 137 Potassium 3.4 L Chloride 96 L Carbon Dioxide 31 Anion Gap 13 BUN 16 Creatinine 0.70 Estimated GFR (MDRD) > 60 Glucose 109 H Calculated Osmolality 266 L Calcium 9.0 Magnesium 1.90
[2016-07-19 14:40] VITALS: PULSE 64
== END 2016-07-19 16:36 | disposition home or self-care (01) | DRG 291 ==
LOC: ED 17:22 → PCU 19:32
PROVIDERS: ADMIT Internal Medicine; ATTEND Hospitalist
DX: I11.0 Hypertensive heart disease with heart failure (principal); J15.9 Unspecified bacterial pneumonia; I48.2 Chronic atrial fibrillation; I35.0 Nonrheumatic aortic (valve) stenosis; F03.90 Unspecified dementia, unspecified severity, without behavioral disturbance, psychotic disturbance, mood disturbance, and anxiety; I50.23 Acute on chronic systolic (congestive) heart failure; Z86.711 Personal history of pulmonary embolism; Z85.72 Personal history of non-Hodgkin lymphomas
CPT/HCPCS: 36415; 71010; 80048; 80053; 81001; 83735; 83880; 84484; 85025; 85027; 85610; 85730; 87040; 87086; 93005; 96374; 96375; 97162; 98960; 99284; J0456; J0696; J1940; J3490; J7060; J7070